=== PATIENT | female | born 1975 | race Caucasian/White ===

== ENCOUNTER 2020-01-07 15:00 | Emergency (ER) | payer MEDICAID, OTHER ==
[~2020-01-07] VITALS: Ht 170.2 cm; Wt 113.3 kg
[2020-01-07 15:12] VITALS: BP 118/84
--- NOTE | 2020-01-07 16:30 | NUR ---
PT TO ROOM FROM M[facility]
--- NOTE | 2020-01-07 18:24 | NUR ---
ASSUMED CARE FOR DISCHARGE ONLY Patient/Caregiver given discharge instructions and they have confirmed that they understand the instructions. Patient ambulatory with steady gait.
== END 2020-01-07 18:26 | disposition home or self-care (01) ==
LOC: ED 17:10
DX: T78.40XA Allergy, unspecified, initial encounter (principal); R21 Rash and other nonspecific skin eruption; R05 Cough; X58.XXXA Exposure to other specified factors, initial encounter
CPT/HCPCS: 99283

== ENCOUNTER 2020-01-19 20:29 | Emergency (ER) | payer OTHER ==
[~2020-01-19] VITALS: Ht 170.2 cm; Wt 114.3 kg
[2020-01-19] MEDS ORDERED: DIPHENHYDRAMINE 25 MG CAPSULE ONE (21:14)
[2020-01-19] MEDS ORDERED: DIPHENHYDRAMINE 25 MG CAPSULE PO ONE (21:30)
[2020-01-19 21:54] VITALS: BP 104/74
== END 2020-01-19 22:06 | disposition home or self-care (01) ==
LOC: ED 21:30
DX: L29.9 Pruritus, unspecified (principal); T78.40XA Allergy, unspecified, initial encounter; R06.02 Shortness of breath; R00.0 Tachycardia, unspecified
CPT/HCPCS: 93005; 99283; J7512; Q0163